=== PATIENT | male | born 1970 | race Caucasian/White ===

== ENCOUNTER 2017-02-25 11:20 | Observation (INO) | payer OTHER ==
[2017-02-25] MEDS ORDERED: Sodium Chloride 0.9% 1,000 ML PRIMARY IV ONE (11:34)
[2017-02-25] MEDS ORDERED: ONDANSETRON 4 MG/2 ML VIAL IVP ONE (11:34)
[2017-02-25] MEDS ORDERED: NORMAL SALINE 10 ML SYRINGE FLUSH IVP PRN ×3 (11:34→19:03)
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
[2017-02-25] MEDS: MORPHINE SULFATE 2 MG/1 ML IVP ONE ×2 (11:46→12:04)
[2017-02-25] MEDS ORDERED: MORPHINE SULFATE 4 MG/1 ML IVP ONE (12:03)
[2017-02-25] MEDS ORDERED: ETOMIDATE 2 MG/1 ML - 20 ML IVP ONE (12:43)
[2017-02-25] MEDS ORDERED: MIDAZOLAM 5 MG/1 ML ONE (15:34)
[2017-02-25] MEDS ORDERED: LIDOCAINE 2%/ EPI 1:200,000 - 20 ML VIAL ONE (15:34)
[2017-02-25] MEDS ORDERED: DEXAMETHASONE SOD PHOSPHATE 4 MG/1 ML VIAL ONE (15:35)
[2017-02-25] MEDS ORDERED: fentaNYL Inj 250 MCG/5 ML VIAL ONE (15:35)
[2017-02-25] MEDS ORDERED: BUPivacaine Inj 0.5% PF (5mg/ml) 30ml vial ONE (15:35)
[2017-02-25] MEDS ORDERED: Lactated Ringers 0 ML PRIMARY IV ONE (15:45)
[2017-02-25] MEDS ORDERED: ceFAZolin Inj 2gm (Premix) 50 ML IV ONE (15:45)
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
[2017-02-25] MEDS ORDERED: Lactated Ringers 1,000 ML PRIMARY IV ONE ×2 (15:58→18:27)
[2017-02-25] MEDS ORDERED: fentaNYL Inj 100 MCG/2 ML VIAL ONE (16:03)
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
[2017-02-25] MEDS ORDERED: KETOROLAC 30 MG/1 ML VIAL ONE (18:36)
[2017-02-25] MEDS ORDERED: LIDOCAINE W/ SODIUM BICARB 0.5 ML SYR ONE (18:41)
[2017-02-25] MEDS ORDERED: CALCIUM CARBONATE 500 MG (TUMS) CHEWABLE TABLET PO PRN (18:49)
[2017-02-25] MEDS ORDERED: ONDANSETRON 4 MG/2 ML VIAL IVP PRN (18:49)
[2017-02-25] MEDS ORDERED: Prochlorperazine Tab 10 MG TAB PO PRN (18:49)
[2017-02-25] MEDS ORDERED: diphenhydrAMINE 25 MG CAPSULE PO PRN (18:49)
[2017-02-25] MEDS ORDERED: ACETAMINOPHEN 325 MG TABLET PO PRN (18:49)
[2017-02-25] MEDS ORDERED: MAG HYDROX/AL HYDROX/SIMETH 30 ML SUSP PO PRN (18:49)
[2017-02-25] MEDS ORDERED: Ondansetron ODT Tab 8 MG TAB PO PRN (18:49)
[2017-02-25] MEDS ORDERED: BISACODYL 10 MG SUPPOSITORY RECTAL PRN (18:49)
[2017-02-25] MEDS ORDERED: BISACODYL 5 MG TABLET PO PRN (18:49)
[2017-02-25] MEDS ORDERED: HYDROmorphone 2 MG/1 ML IVP PRN (19:03)
--- NOTE | 2017-02-25 19:06 | CRNA.PROCE ---
Nerve Block Documentation - - Type of Nerve Block Used: Left Popliteal Fossa Block Position for Nerve Block: Prone Moniters Used During Block: EKG, SPO2, NIBP Oxygen Sumpplented: Yes Sedation Used - Enter Amount in Comment Field: Midazolam (mg): Yes (4), Fentanyl (mcg): Yes (50) Skin Prep Used: ChloroPrep Draped: No Technique: Nerve Stimulator Nerve Block Needle Used: 100 mm ProBlk II Stimulation Hz: 2 Stimulation Staring mA: 1.4 Stimulation Ending mA: 0.6 Local Anesthetic - Enter Amt in Comment Field: 0.5 % Bupivacaine Plain (mL): Yes (20), 2 % Xylocaine with Epinephrine 1:200,000 (mL): Yes (20) Additives to Nerve Blocks: Dexamethasone (mL): Yes (8mg(2ml))
[2017-02-25] MEDS ORDERED: HYDROmorphone 2 MG/1 ML ONE (19:07)
--- NOTE | 2017-02-25 19:07 | CRNA.PROCE ---
Central Neuraxis Block Placemt - - Safety Measures: Time Out Taken, Site Verified - - Type of Block: Subarachnoid Reason for Block: Surgical Moniters Used During Block: EKG, SPO2, NIBP Positioning: Sitting Skin Prep Used: ChloroPrep Draped: No Skin Infiltration - Enter Amount Used in Comment Field: 1% Xylocaine (mL): Yes ( skin wheal) Spinal Needle Used: 25 Dinora 80 mm Additive Used - Enter Amount Used in Comment Field: Fentanyl (mcg): Yes (15mcg) Bioclusive Dressing Applied: No
[2017-02-25] MEDS ORDERED: Lactated Ringers 1,000 ML PRIMARY IV SCH (19:15)
[2017-02-25] MEDS ORDERED: oxyCODONE-ACETAMINOPHEN 5-325 TAB PO PRN (19:47)
[2017-02-25 20:20] VITALS: RESP 16; TEMP 97.2
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
--- NOTE | 2017-02-28 17:04 | ORTHO.PROG ---
Last Taken Vital Signs: Vital Signs - Last Taken Temperature 97.2 F 02/25/17 20:00 Pulse Rate 64 02/25/17 20:00 Respiratory Rate 16 02/25/17 20:00 Blood Pressure 126/66 02/25/17 20:00 Pulse Ox 92 02/25/17 20:00 Subjective: Pt tolerated his surgery well and was discharged home when he met d/c criteria.
== END 2017-02-25 21:25 | disposition home or self-care (01) ==
LOC: ER 11:20 → SDSC 16:11 → MED/SURG 18:49 → UNDOADMIN 18:49 → UNDODISIN 21:25
PROVIDERS: ADMIT Orthopaedic Surgery; ATTEND Orthopaedic Surgery
DX: S82.852A Displaced trimalleolar fracture of left lower leg, initial encounter for closed fracture (principal); W17.2XXA Fall into hole, initial encounter
CPT/HCPCS: 27810 ×2; 27822; 27829; 73600; 73610; 73700; 76001; 96374; 96375; 99284 ×2; J0690; J1100; J1885; J2250; J2270; J2405; J2704; J3010 ×2; J3490; J1170; J7030; J7120